=== PATIENT | female | born 1935 ===

== ENCOUNTER 2017-12-21 08:21 | Day surgery (SDC) | payer MEDICAID ==
[2017-12-21] MEDS ORDERED: Etomidate 20 mg/10ml Inj IV ONE (09:53)
[2017-12-21] MEDS ORDERED: Lactated Ringer's 1,000 ML IV ONE (09:55)
[2017-12-21 11:37] LABS: ARTERIAL BLOOD GAS HCO3 25.5 mmol/L (21-28); ARTERIAL BLOOD GAS O2 SAT 96.5 % (95-98); ARTERIAL BLOOD GAS PCO2 39 mm/Hg (35-45); ARTERIAL BLOOD GAS PH 7.42 (7.35-7.45); ARTERIAL BLOOD GAS PO2 117 mm/Hg (80-100); ARTERIAL BLOOD GAS TCO2 26.5 mmol/L (22-28)
[2017-12-21 11:43] LABS: BLOOD UREA NITROGEN 8 mg/dL (7-17); CALCIUM 9.5 mg/dl (8.6-10.4); GFR AFRICAN-AMERICAN > 60; GFR NON-AFRICAN AMERICAN > 60
[2017-12-21 12:15] VITALS: TEMP 97.3
[2017-12-21 14:28] VITALS: RESP 17
[2017-12-21 14:33] VITALS: BP 133/96; PULSE 75; O2SAT 96
--- NOTE | 2017-12-22 20:54 | CARD ---
APPROVED REPORT Date of service: 12/21/2017 EKG Measurement Heart [id number] <Conclusion> Normal sinus rhythm Minimal voltage criteria for LVH, may be normal variant Cannot rule out Inferior infarct, age undetermined Abnormal ECG
== END 2017-12-21 12:55 | disposition home or self-care (01) ==
LOC: C.ENDO 08:21
PROVIDERS: ATTEND Internal Medicine Gastroenterology
DX: Z12.11 Encounter for screening for malignant neoplasm of colon (principal); R10.13 Epigastric pain; K44.9 Diaphragmatic hernia without obstruction or gangrene; K29.70 Gastritis, unspecified, without bleeding; K63.5 Polyp of colon; K64.8 Other hemorrhoids
CPT/HCPCS: 36415; 43239; 45385; 80048; 82803; 82948; 84484; 88305; 93005; J2001; J7120